=== PATIENT | female | born 1990 | race Caucasian/White ===

== ENCOUNTER 2019-08-25 12:50 | Emergency (ER) | payer OTHER ==
[~2019-08-25] VITALS: Ht 180.3 cm; Wt 79.4 kg
[~2019-08-25 12:50] MED LIST: BIRTH CONTROL
[2019-08-25] MEDS ORDERED: MEDROLDOSEPACK PO (13:56)
[2019-08-25 14:21] VITALS: BP 127/52
[2019-08-25] MEDS ORDERED: TYLENOL WITH CO1 TA1 PO (14:21)
== END 2019-08-25 14:22 | disposition home or self-care (01) ==
LOC: M.ERS 12:50
DX: S16.1XXA Strain of muscle, fascia and tendon at neck level, initial encounter (principal); J45.909 Unspecified asthma, uncomplicated; Z88.1 Allergy status to other antibiotic agents; V89.2XXA Person injured in unspecified motor-vehicle accident, traffic, initial encounter; Y93.89 Activity, other specified; Y92.89 Other specified places as the place of occurrence of the external cause; Y99.8 Other external cause status